=== PATIENT | female | born 1955 | race Caucasian/White ===

== ENCOUNTER → 2018-05-22 | Outpatient (CLI) | payer MEDICAID ==
[2018-05-22 12:48] LABS: Basophils % (A) 0 %; Eosinophils # (A) 0.1 k/uL (0-0.7); Eosinophils % (A) 1 %; HCT 45.2 % (34.0-46.0); HGB 14.1 gm/dL (11.4-16.0); Lymphocytes # (A) 1.5 k/uL (1.0-4.8); Lymphocytes % (A) 32 %; MCH 28.4 pg (25.0-35.0); MCHC 31.1 g/dL (31.0-37.0); MCV 91.2 fL (80.0-100.0); Mean Platelet Volume 6.4; Monocytes # (A) 0.3 k/uL (0-1.0); Monocytes % (A) 6 %; Neutrophils # (A) 2.8 k/uL (1.3-7.7); Neutrophils % (A) 59 %; Platelet Count 260 k/uL (150-450); RBC 4.96 m/uL (3.80-5.40); RDW 13.1 % (11.5-15.5); WBC 4.8 k/uL (3.8-10.6)
[2018-05-22 13:10] LABS: ALT 46 U/L (9-52); AST 38 U/L (14-36); Albumin 4.5 g/dL (3.5-5.0); Alkaline Phosphatase 55 U/L (38-126); Anion Gap 8 mmol/L; Blood Urea Nitrogen 16 mg/dL (7-17); Calcium 9.8 mg/dL (8.4-10.2); Carbon Dioxide 28 mmol/L (22-30); Chloride 104 mmol/L (98-107); Glucose 102 mg/dL (74-99); HDL Cholesterol 51 mg/dL (40-60); Potassium 4.5 mmol/L (3.5-5.1); Sodium 140 mmol/L (137-145); Total Bilirubin 0.7 mg/dL (0.2-1.3); Total Protein 7.1 g/dL (6.3-8.2); Triglycerides 188 mg/dL (<150)
[2018-05-22 13:15] LABS: LDL Cholesterol,Calculated 242 mg/dL (0-99)
[2018-05-22 13:30] LABS: Cholesterol 331 mg/dL (<200)
[2018-05-22 19:04] LABS: Vitamin D 25 Hydroxy 53.7 ng/mL (30.0-100.0)
== END | disposition home or self-care (01) ==
LOC: LABWHC1 11:39
PROVIDERS: ATTEND Family Medicine
DX: I10 Essential (primary) hypertension (principal); F41.1 Generalized anxiety disorder; E55.9 Vitamin D deficiency, unspecified; H81.09 Meniere's disease, unspecified ear
CPT/HCPCS: 36415; 80053; 80061; 82306; 82607; 84443; 85025

== ENCOUNTER → 2018-08-28 | Outpatient (CLI) | payer MEDICAID ==
--- NOTE | 2018-08-28 16:38 | XR ---
EXAMINATION TYPE: XR humerus LT DATE OF EXAM: 08/28/2018 COMPARISON: NONE HISTORY: 63 year-old female left upper arm pain, attention to the soft tissues TECHNIQUE: 2 views FINDINGS: No acute fracture or dislocation. Some bony spurring at the lateral condyle suggesting common extenso r tendinopathy. No suspicious soft tissue abnormality seen. Degenerative changes at the AC joint. IMPRESSION: No acute osseous abnormality seen. No retained radiopaque foreign body or significant soft tissue abn ormality seen.
== END | disposition home or self-care (01) ==
LOC: RADXRMAIN 14:14
PROVIDERS: ATTEND Family Medicine
DX: M79.602 Pain in left arm (principal); M79.89 Other specified soft tissue disorders

== ENCOUNTER → 2018-09-27 | Outpatient (CLI) | payer MEDICAID ==
--- NOTE | 2018-09-27 20:24 | MR ---
EXAMINATION TYPE: MR humerus LT wo con DATE OF EXAM: 09/27/2018 COMPARISON: None HISTORY: Pain in left shoulder Standard multiplanar, multisequence MRI departmental protocol Multiplanar, multisequence images of the left humerus were acquired. FINDINGS: The shoulder joint appears intact. There is no evidence of humerus fracture. I see no foca l bone destruction. I see no evidence of rotator cuff tear at the shoulder joint. The elbow joint is not entirely included on the exam. There is no evidence of a soft tissue mass. There is no evidence o f shoulder joint effusion. On the T2 and STIR images there is some mild patchy increased signal in the greater tuberosity of the humerus consistent with a edema and bone bruise. This area measures 1.5 cm. IMPRESSION: There is evidence of a bone bruise involving the greater tuberosity of the humerus. No fracture seen.
== END ==
LOC: RADMRIMAIN 18:59
PROVIDERS: ATTEND Family Medicine
DX: S40.022A Contusion of left upper arm, initial encounter (principal)

== ENCOUNTER 2018-12-06 09:35 | Emergency (ER) | payer MEDICAID ==
[2018-12-06 09:56] VITALS: BP 130/75; PULSE 80; RESP 18; TEMP 98.1
--- NOTE | 2018-12-06 10:25 | ED ---
Lower Extremity Injury HPI - General Chief Complaint: Extremity Injury, Lower Stated Complaint: left foot problems/poss blood clot Time Seen by Provider: 12/06/18 09:57 Source: patient, RN notes reviewed Mode of arrival: ambulatory Limitations: no limitations - History of Present Illness Initial Comments: 63-year-old female presents emergency Department chief complaint of left leg pain. Patient states she is concerned about possible blood clot. Patient states that she had injections in both of her knees week ago by Dr. Zambrano. Patient states that she's had no relief of her knee pain. Patient states she now has what appears to be some swelling to her left leg and pain with numbness and tingling. Patient denies any trauma no rashes. Patient has no history DVT. Patient states she has pain in her leg with certain movements. Patient denies any decreased mobility. - Related Data Home Medications Medication Instructions Recorded Confirmed Biotin 10,000 mcg PO DAILY 12/06/18 12/06/18 LORazepam [Ativan] 0.5 mg PO HS 12/06/18 12/06/18 Lisinopril [Zestril] 10 mg PO DAILY 12/06/18 12/06/18 Magnesium Chloride [Slow-Mag] 128 mg PO DAILY 12/06/18 12/06/18 Prospect-3 Fatty Acids [Prospect-3] 1,000 mg PO DAILY 12/06/18 12/06/18 Pyridoxine HCl (Vitamin B6) 200 mg PO DAILY 12/06/18 12/06/18 [Vitamin B-6] Allergies Allergy/AdvReac Type Severity Reaction Status Date / Time amoxicillin [From Augmentin] Allergy Unknown Verified 12/06/18 10:12 clavulanic acid Allergy Unknown Verified 12/06/18 10:12 [From Augmentin] Sulfa (Sulfonamide Allergy Rash/Hives Verified 12/06/18 10:12 Antibiotics) egg AdvReac CONGESTION Verified 12/06/18 10:12 meperidine [From Demerol] AdvReac Nausea & Verified 12/06/18 10:12 Vomiting milk AdvReac CONGESTION Verified 12/06/18 10:12 Hnzpysx-Mni-Uys Reductase AdvReac STIFF Verified 12/06/18 10:12 Inhibitor JOINTS wheat AdvReac CONGESTION Verified 12/06/18 10:12 DIURETICS AdvReac STIFF Uncoded 12/06/18 10:12 JOINTS Review of Systems ROS Statement: Those systems with pertinent positive or pertinent negative responses have been documented in the HPI. ROS Other: All systems not noted in ROS Statement are negative. Past Medical History Past Medical History: Hyperlipidemia, Hypertension History of Any Multi-Drug Resistant Organisms: None Reported Past Surgical History: Cholecystectomy, Orthopedic Surgery, Tonsillectomy Additional Past Surgical History / Comment(s): sinus Past Psychological History: No Psychological Hx Reported Smoking Status: Never smoker Past Alcohol Use History: None Reported Past Drug Use History: None Reported General Exam Limitations: no limitations General appearance: alert, in no apparent distress Head exam: Present: atraumatic, normocephalic, normal inspection Eye exam: Present: normal appearance, PERRL, EOMI. Absent: scleral icterus, conjunctival injection, periorbital swelling Neck exam: Present: normal inspection, full ROM. Absent: tenderness, meningismus, lymphadenopathy Respiratory exam: Present: normal lung sounds bilaterally. Absent: respiratory distress, wheezes, rales, rhonchi, stridor Cardiovascular Exam: Present: regular rate, normal rhythm, normal heart sounds. Absent: systolic murmur, diastolic murmur, rubs, gallop, clicks Extremities exam: Present: other (Left leg there is mild swelling over the left knee, no erythema no increased warmth. Pedal pulses are equal bilaterally, there is mild tenderness to left calf Refill less than 2 seconds.) Skin exam: Present: warm, dry, intact, normal color. Absent: rash Course Vital Signs 12/06/18 09:52 Temperature 98.1 F Pulse Rate 80 Respiratory 18 Rate Blood Pressure 130/75 O2 Sat by Pulse 99 Oximetry Medical Decision Making - Medical Decision Making 63-year-old female presented emergency department with chief complaint left leg pain. Patient had ultrasound emergency Department which is unremarkable. Patient's pain is most likely referred pain. Patient will follow-up with her orthopedic physician who injected her left knee. Return parameters were discussed. Disposition Clinical Impression: Left leg pain Disposition: HOME SELF-CARE Condition: Stable Instructions (If sedation given, give patient instructions): Knee Pain (ED), Leg Pain (ED) Additional Instructions: Please return to the Emergency Department if symptoms worsen or any other concerns. Is patient prescribed a controlled substance at d/c from ED?: No Referrals: Alverto Sandoval MD [Primary Care Provider] - 1-2 days Luis Galvan MD [STAFF PHYSICIAN] - 1-2 days Time of Disposition: 11:20
--- NOTE | 2018-12-06 10:59 | US ---
EXAMINATION TYPE: US venous doppler duplex LE LT DATE OF EXAM: 12/06/2018 10:23 AM COMPARISON: NONE CLINICAL HISTORY: Pain. Left foot pain SIDE PERFORMED: Left TECHNIQUE: The lower extremity deep venous system is examined utilizing real time linear array sonog gustavo with graded compression, doppler sonography and color-flow sonography. VESSELS IMAGED: External Iliac Vein (EIV) Common Femoral Vein Deep Femoral Vein Greater Saphenous Vein * Femoral Vein Popliteal Vein Small Saphenous Vein * Proximal Calf Veins (* superficial vessels) Grayscale, color doppler, spectral doppler imaging performed of the deep veins of the left lower extr emity. There is normal flow, compressibility, vascular waveforms. Left Leg: Negative for DVT IMPRESSION: No sonographic evidence of deep venous thrombosis within the left lower extremity.
== END 2018-12-06 11:43 | disposition home or self-care (01) ==
LOC: EC 09:35
DX: M79.605 Pain in left leg (principal); M79.89 Other specified soft tissue disorders; R20.0 Anesthesia of skin; R20.2 Paresthesia of skin; M25.562 Pain in left knee; I10 Essential (primary) hypertension; Z88.0 Allergy status to penicillin; Z88.2 Allergy status to sulfonamides; Z88.5 Allergy status to narcotic agent; Z88.8 Allergy status to other drugs, medicaments and biological substances; Z91.011 Allergy to milk products; Z91.012 Allergy to eggs; Z91.018 Allergy to other foods; Z79.899 Other long term (current) drug therapy
CPT/HCPCS: 99283

== ENCOUNTER → 2019-03-11 | Outpatient (CLI) | payer MEDICAID ==
[2019-03-11 14:04] LABS: Basophils % (A) 1 %; Eosinophils # (A) 0.1 k/uL (0-0.7); Eosinophils % (A) 1 %; HCT 44.2 % (34.0-46.0); HGB 14.2 gm/dL (11.4-16.0); Lymphocytes # (A) 1.6 k/uL (1.0-4.8); Lymphocytes % (A) 33 %; MCH 29.4 pg (25.0-35.0); MCHC 32.1 g/dL (31.0-37.0); MCV 91.6 fL (80.0-100.0); Mean Platelet Volume 6.4; Monocytes # (A) 0.2 k/uL (0-1.0); Monocytes % (A) 4 %; Neutrophils # (A) 2.9 k/uL (1.3-7.7); Neutrophils % (A) 60 %; Platelet Count 273 k/uL (150-450); RBC 4.83 m/uL (3.80-5.40); RDW 12.9 % (11.5-15.5); WBC 4.8 k/uL (3.8-10.6)
[2019-03-11 19:18] LABS: African American GFR (CKD) 92.2 (60.0-200.0); Albumin 4.7 g/dL (3.80-4.90); Albumin/Globulin Ratio 2.61 (1.60-3.17); Anion Gap 8.2 mmol/L (4.00-12.00); BUN/Creat Ratio 22.5 Ratio (12.00-20.00); Calcium 9.7 mg/dL (8.7-10.3); Carbon Dioxide 26.8 mmol/L (21.6-31.8); Globulin 1.8 g/dL (1.6-3.3); LDL Cholesterol,Calculated 207.2 mg/dL (0.0-131.0); Potassium 4.5 mmol/L (3.5-5.5); Total Bilirubin 0.6 mg/dL (0.3-1.2); Total Protein 6.5 g/dL (6.2-8.2); VLDL Calculation 34.8 mg/dL (5.00-40.00)
[2019-03-11 19:24] LABS: Vitamin D 25 Hydroxy 34.6 ng/mL (30.0-100.0)
== END | disposition home or self-care (01) ==
LOC: LABWHC1 12:43
PROVIDERS: ATTEND Family Medicine
DX: I10 Essential (primary) hypertension (principal); F41.1 Generalized anxiety disorder; E55.9 Vitamin D deficiency, unspecified; H81.09 Meniere's disease, unspecified ear
CPT/HCPCS: 36415; 80053; 80061; 82306; 82607; 84443; 85025

== ENCOUNTER → 2020-07-29 | Outpatient (CLI) | payer MEDICAID | END | disposition home or self-care (01) | LOC: LABWHC1 15:31 | PROVIDERS: ATTEND Family Medicine | DX: Z20.828 Contact with and (suspected) exposure to other viral communicable diseases (principal) | CPT/HCPCS: U0003; C9803 ==

== ENCOUNTER → 2020-10-12 | Outpatient (CLI) | payer MEDICAID ==
[2020-10-12 15:28] LABS: Basophils % (A) 1 %; Eosinophils % (A) 1 %; HCT 42.6 % (34.0-46.0); Lymphocytes # (A) 1.6 k/uL (1.0-4.8); Lymphocytes % (A) 29 %; MCH 29.9 pg (25.0-35.0); MCHC 32.9 g/dL (31.0-37.0); MCV 90.9 fL (80.0-100.0); Mean Platelet Volume 6.7; Monocytes # (A) 0.3 k/uL (0-1.0); Monocytes % (A) 5 %; Neutrophils # (A) 3.7 k/uL (1.3-7.7); Neutrophils % (A) 64 %; Platelet Count 257 k/uL (150-450); RBC 4.69 m/uL (3.80-5.40); RDW 12.6 % (11.5-15.5); WBC 5.7 k/uL (3.8-10.6)
[2020-10-12 15:33] LABS: Appearance,Urine Clear (Clear); Bilirubin,Urine Negative (Negative); Blood,Urine Negative (Negative); Color,Urine Yellow; Glucose,Urine (UA) Negative (Negative); Ketones,Urine Negative (Negative); Leukocyte Esterase,Urine Negative (Negative); Nitrite,Urine Negative (Negative); Protein,Urine Negative (Negative); Specific Gravity,Urine 1.024 (1.001-1.035); Urobilinogen,Urine <2.0 mg/dL (<2.0)
[2020-10-12 20:43] LABS: Erythrocyte Sedimentation Rate 11 mm/hr (0-20)
[2020-10-12 22:41] LABS: African American GFR (CKD) 90.9 (60.0-200.0); Albumin 4.6 g/dL (3.80-4.90); Albumin/Globulin Ratio 2.42 (1.60-3.17); Anion Gap 10.1 mmol/L (4.00-12.00); BUN/Creat Ratio 21.25 Ratio (12.00-20.00); Calcium 9.7 mg/dL (8.7-10.3); Carbon Dioxide 26.9 mmol/L (21.6-31.8); Globulin 1.9 g/dL (1.6-3.3); Non-African American GFR(CKD) 78.5 (60.0-200.0); Potassium 4.3 mmol/L (3.5-5.5); Total Bilirubin 0.3 mg/dL (0.2-1.2); Total Protein 6.5 g/dL (6.2-8.2)
== END | disposition home or self-care (01) ==
LOC: LABWHC1 13:54
PROVIDERS: ATTEND Family Medicine
DX: F48.8 Other specified nonpsychotic mental disorders (principal); Z86.19 Personal history of other infectious and parasitic diseases
CPT/HCPCS: 36415; 80053; 81003; 82306; 84443; 85025; 85652

== ENCOUNTER → 2020-10-12 | Outpatient (CLI) | payer MEDICAID ==
--- NOTE | 2020-10-12 15:52 | XR ---
EXAMINATION TYPE: XR chest 2V DATE OF EXAM: 10/12/2020 COMPARISON: NONE TECHNIQUE: PA and lateral views submitted. HISTORY: Cough FINDINGS: The lungs are clear and there is no pneumothorax, pleural effusion, or focal pneumonia. Heart size normal. Curvature of the spine. Surgical clips in the abdomen. No overt failure. Hyperinflation sugge sts COPD. IMPRESSION: 1. No acute process.
== END | disposition home or self-care (01) ==
LOC: RADXRMAIN 14:44
PROVIDERS: ATTEND Family Medicine
DX: R05 Cough (principal)
CPT/HCPCS: 71046

== ENCOUNTER 2021-09-07 16:15 | Emergency (ER) | payer MEDICAID ==
[2021-09-07 16:35] VITALS: BP 124/71; PULSE 73; RESP 20; TEMP 98.9
[2021-09-07] MEDS ORDERED: predniSONE 50 MG TAB PO STA (18:01)
[2021-09-07] MEDS ORDERED: AZITHROMYCIN 250 MG TAB PO STA (18:01)
--- NOTE | 2021-09-07 18:02 | ED ---
URI HPI - General Chief Complaint: Upper Respiratory Infection Stated Complaint: Wants covid test Time Seen by Provider: 09/07/21 17:08 Source: patient, RN notes reviewed Mode of arrival: ambulatory Limitations: no limitations - History of Present Illness Initial Comments: This a 66-year-old female presents emergency Department for COVID-19 tested. Patient states that she resume visit with Dr. dorman her PCP who recommended come for testing. Patient states she's had fevers chills bodies cough congestion. She had COVID-19 last year, has been vaccinated. Patient states she was sent or prescription for azithromycin, prednisone. Patient denies any abdominal pain patient offers no complaints. - Related Data Home Medications Medication Instructions Recorded Confirmed Biotin 10,000 mcg PO DAILY 12/06/18 12/06/18 LORazepam [Ativan] 0.5 mg PO HS 12/06/18 12/06/18 Lisinopril [Zestril] 10 mg PO DAILY 12/06/18 12/06/18 Magnesium Chloride [Slow-Mag] 128 mg PO DAILY 12/06/18 12/06/18 [place]-3 Fatty Acids [[place]-3] 1,000 mg PO DAILY 12/06/18 12/06/18 Pyridoxine HCl (Vitamin B6) 200 mg PO DAILY 12/06/18 12/06/18 [Vitamin B-6] Allergies Allergy/AdvReac Type Severity Reaction Status Date / Time amoxicillin [From Augmentin] Allergy Unknown Verified 09/07/21 16:31 clavulanic acid Allergy Unknown Verified 09/07/21 16:31 [From Augmentin] Sulfa (Sulfonamide Allergy Rash/Hives Verified 09/07/21 16:31 Antibiotics) egg AdvReac CONGESTION Verified 09/07/21 16:31 meperidine [From Demerol] AdvReac Nausea & Verified 09/07/21 16:31 Vomiting milk AdvReac CONGESTION Verified 09/07/21 16:31 Fqizsdy-INZ-XqI Reductase AdvReac STIFF Verified 09/07/21 16:31 Inhibitor JOINTS [Ccnqpfg-Lvj-Neo Reductase Inhibitor] wheat AdvReac CONGESTION Verified 09/07/21 16:31 DIURETICS AdvReac STIFF Uncoded 09/07/21 16:31 JOINTS Review of Systems ROS Statement: Those systems with pertinent positive or pertinent negative responses have been documented in the HPI. ROS Other: All systems not noted in ROS Statement are negative. Past Medical History Past Medical History: Hyperlipidemia, Hypertension History of Any Multi-Drug Resistant Organisms: None Reported Past Surgical History: Cholecystectomy, Orthopedic Surgery, Tonsillectomy Additional Past Surgical History / Comment(s): sinus Past Psychological History: No Psychological Hx Reported Smoking Status: Never smoker Past Alcohol Use History: None Reported Past Drug Use History: None Reported General Exam Limitations: no limitations General appearance: alert, in no apparent distress Head exam: Present: atraumatic, normocephalic, normal inspection Eye exam: Present: normal appearance, PERRL, EOMI. Absent: scleral icterus, conjunctival injection, periorbital swelling ENT exam: Present: normal exam, normal oropharynx, mucous membranes moist Neck exam: Present: normal inspection, full ROM. Absent: tenderness, meningismus, lymphadenopathy Respiratory exam: Present: normal lung sounds bilaterally. Absent: respiratory distress, wheezes, rales, rhonchi, stridor Cardiovascular Exam: Present: regular rate, normal rhythm, normal heart sounds. Absent: systolic murmur, diastolic murmur, rubs, gallop, clicks Course Vital Signs 09/07/21 16:31 Temperature 98.9 F Pulse Rate 73 Respiratory 20 Rate Blood Pressure 124/71 O2 Sat by Pulse 98 Oximetry Medical Decision Making - Medical Decision Making Patient has negative COVID-19 test will be discharged to condition return parameters discussed. - Lab Data Lab Results 09/07/21 Range/Units 16:37 Coronavirus (PCR) Not Detected (Not Detectd) Disposition Clinical Impression: URI (upper respiratory infection) Disposition: HOME SELF-CARE Condition: Stable Instructions (If sedation given, give patient instructions): Upper Respiratory Infection (ED) Additional Instructions: Please return to the Emergency Department if symptoms worsen or any other concerns. Is patient prescribed a controlled substance at d/c from ED?: No Referrals: Alverto Sandoval MD [Primary Care Provider] - 1-2 days Time of Disposition: 18:02
== END 2021-09-07 19:17 | disposition home or self-care (01) ==
LOC: EC 16:15
DX: J06.9 Acute upper respiratory infection, unspecified (principal); I10 Essential (primary) hypertension; E78.5 Hyperlipidemia, unspecified; Z20.822 Contact with and (suspected) exposure to COVID-19; Z88.0 Allergy status to penicillin; Z88.1 Allergy status to other antibiotic agents; Z88.2 Allergy status to sulfonamides; Z90.49 Acquired absence of other specified parts of digestive tract
CPT/HCPCS: 99283; 87635; U0003; J7512

== ENCOUNTER → 2021-11-18 | Outpatient (CLI) | payer MEDICAID ==
--- NOTE | 2021-11-18 16:04 | CT ---
EXAMINATION TYPE: CT sinus wo con DATE OF EXAM: 11/18/2021 COMPARISON: None available HISTORY: Chronic sinusitis and loss of smell x1.[address] DLP: 605.9 mGycm. Automated Exposure Control for Dose Reduction was Utilized. TECHNIQUE: CT scan of the sinuses is performed without contrast, axial images are obtained, coronal r eformatted images are also reviewed. FINDINGS: Previous endoscopic sinus surgery with bilateral maxillary antrostomy, uncinectomy and bilateral midd le turbinectomy. Partial resection of the inferior turbinates is also noted with partial ethmoidectom y. Clear maxillary sinuses without significant mucosal thickening. Sclerotic changes of the bony boundary of the ethmoid air cells, with minimal mucosal thickening, lik roman representing sequela of previous chronic inflammatory changes. Unremarkable frontal sinus. Clear sphenoid sinus with slight widening of the sphenoethmoidal recesses. Rather central bony nasal septum. Clear visualized mastoid air cells. Unremarkable visualized portion of the brain and orbits. IMPRESSION: Postsurgical and chronic changes as described above. No evidence of acute sinusitis or significant mu cosal thickening of the paranasal sinuses.
== END | disposition home or self-care (01) ==
LOC: RADCTMAIN 15:14
PROVIDERS: ATTEND Otolaryngology
DX: J32.9 Chronic sinusitis, unspecified (principal); Z86.16 Personal history of COVID-19
CPT/HCPCS: 70486

== ENCOUNTER → 2024-02-06 | Outpatient (CLI) | payer MEDICARE, BC ==
--- NOTE | 2024-02-07 13:44 | MR ---
EXAMINATION TYPE: MR lumbar spine wo con DATE OF EXAM: 02/06/2024 COMPARISON: None HISTORY: 68-year-old female M54.16, Low back pain into Rt side and Left buttocks x3.5 months, Hx of F racture T-12 and L-1, TECHNIQUE: Multiplanar, multisequence images of the lumbar spine were acquired without IV contrast. FINDINGS: There is a slight dextroconvex scoliosis centered at L1-L2. There is focal edematous Modic type I end plate change here toward the left with associated moderate degenerative disc disease characterized by desiccated, narrowed, and bulging disc. A few scattered endplate Schmorl's nodes lower thoracic and upper lumbar spine. Minimal superior endp late deformity of T12 compatible with patient's reported old fracture. Remaining vertebral body heigh ts are preserved. Mild to moderate degenerative disc disease elsewhere throughout the lumbar spine with a desiccated an d bulging discs. There is Modic type II fatty endplate change towards the left and L2-L3. No suspicio us bone marrow placement. Conus medullaris is normal. Advanced hypertrophic facet arthropathy throughout the lumbar spine. Degenerative grade 1 retrolisthesis L2-L3 and grade 1 anterolisthesis L4-L5. Posterior bulging discs at multiple levels impress on the ventral thecal sac but do not cause any sig nificant spinal canal stenosis. The largest of these are present at L1-L2. On the left, there are mild neuroforaminal stenoses throughout, greatest at L1-L2, L2-L3, and L3-L4. On the right, stable mild neuroforaminal stenoses throughout, greatest at L3-L4. No high-grade foraminal compromise. There is a 1.3 cm mildly T2 hyperintense cortical lesion mid right kidney. Ultrasound can confirm a b enign cyst. IMPRESSION: 1. Slight dextroconvex scoliosis centered at L1-L2. Associated degenerative disc disease and edematou s Modic type I endplate change towards the left. 2. An old, minimal superior endplate compression deformity of T12 compatible with patient's reported history. No new vertebral compression collapse. 3. Mild to moderate multilevel degenerative disc disease throughout. Posterior bulging discs without a focal disc herniation or significant spinal canal stenosis. 4. Hypertrophic facet arthropathy throughout. Degenerative grade 1 spondylolisthesis L2-L3 and L4-L5. 5. Variable mild neuroforaminal stenoses as outlined above. No high-grade foraminal narrowing is seen . 6. A 1.3 cm cortical lesion within the mid right kidney. This may represent a mildly complicated cyst . Recommend renal ultrasound to confirm a benign cyst.
== END | disposition home or self-care (01) ==
LOC: RADMRIMAIN 21:30
PROVIDERS: ATTEND Family Medicine
DX: M43.16 Spondylolisthesis, lumbar region (principal); M47.26 Other spondylosis with radiculopathy, lumbar region; M51.16 Intervertebral disc disorders with radiculopathy, lumbar region; M41.86 Other forms of scoliosis, lumbar region; M99.73 Connective tissue and disc stenosis of intervertebral foramina of lumbar region; N28.89 Other specified disorders of kidney and ureter; M43.8X4 Other specified deforming dorsopathies, thoracic region
CPT/HCPCS: 72148

== ENCOUNTER → 2024-08-15 | Outpatient (CLI) | payer MEDICARE, BC ==
--- NOTE | 2024-08-17 20:38 | US ---
EXAMINATION TYPE: US carotid duplex BILAT DATE OF EXAM: 08/15/2024 COMPARISON: NONE CLINICAL INDICATION: Female, 69 years old with history of H53.9 UNSPECIFIED VISUAL DISTURBANCEGRAY JK T; right eye visual disturbance, floaters Additional History: .... TECHNIQUE: Grayscale, color Doppler and spectral Doppler evaluation of the bilateral carotid systems and vertebral arteries. Indirect Doppler criteria was utilized. FINDINGS: EXAM MEASUREMENTS: RIGHT: Peak Systolic Velocity (PSV) cm/sec ----- Right CCA: 98.1 ----- Right ICA: 98.7 ----- Right ECA: 120 ICA/CCA ratio: 1.01 RIGHT: End Diastole cm/sec ----- Right CCA: 22.7 ----- Right ICA: 27.3 ----- Right ECA: 24.7 LEFT: Peak Systolic Velocity (PSV) cm/sec ----- Left CCA: 102 ----- Left ICA: 108 ----- Left ECA: 193 ICA/CCA ratio: 1.06 LEFT: End Diastole cm/sec ----- Left CCA: 31.2 ----- Left ICA: 42.9 ----- Left ECA: 42.1 VERTEBRALS (direction of flow): Right Vertebral: Antegrade Left Vertebral: Antegrade Rhythm: Normal [employer] NOTES: Mild plaque bilateral bifurcations. Increased velocities left ECA Color Doppler imaging shows patency with blood flow throughout the carotid artery. Spectral waveforms are within normal limits. IMPRESSION: 1. Atheromatous plaquing without significant flow-limiting stenosis based on velocities. Criteria for Assigning % of Stenosis / Diameter reduction (Estimation based on the indirect measurements of the internal carotid artery velocities (ICA PSV). 1. Normal (no stenosis)=ICA PSV < 125 cm/s: ratio < 2.0: ICA EDV<40 cm/s. 2. Less than 50% stenosis=ICA PSV < 125 cm/s: ratio < 2.0: ICA EDV<40 cm/s. 3. 50 to 69% stenosis=ICA PSV of 125 to 230 cm/s: ration 2.0 ? 4.0: ICA EDV 40-100 cm/s. 4. Greater than 70% stenosis to near occlusion= ICA PSV > 230 cm/s: ratio > 4.0: ICA EDV > 100 cm/s. 5. Near occlusion= ICA PSV velocities may be low or undetectable: variable ratio and ICA EDV. 6. Total occlusion=unable to detect flow. [facility], , 08/17/2024 8:36 PM
== END | disposition home or self-care (01) ==
LOC: RADUSWWP 08:04
PROVIDERS: ATTEND Internal Medicine Cardiovascular Disease
DX: I65.23 Occlusion and stenosis of bilateral carotid arteries (principal); H53.9 Unspecified visual disturbance
CPT/HCPCS: 93880